=== PATIENT | female | born 1975 | race Caucasian/White ===

== ENCOUNTER 2022-09-03 08:40 | Day surgery (SDC) | payer MEDICARE, MEDICAID ==
[~2022-09-03] VITALS: Ht 157.5 cm; Wt 79.4 kg
[2022-09-03] VITALS (12 sets, daily range): BP systolic 87–121; BP diastolic 34–73; PULSE 83–102; TEMP 97.6–98.7
[2022-09-03] MEDS ORDERED: NORCO 325 MG-7.1 TAB PO (10:06)
[2022-09-03] MEDS ORDERED: TOFRANIL 10MG T10 MG PO (10:07)
[2022-09-03] MEDS ORDERED: CELEXA 20MG20 MG/TAB PO (10:08)
[2022-09-03] MEDS ORDERED: CELEXA40 MG PO (10:08)
[2022-09-03] MEDS ORDERED: PRILOSEC 20MG20 MG PO (10:09)
[2022-09-03] MEDS ORDERED: XANAX 1MG1 MG PO (10:09)
[2022-09-03] MEDS ORDERED: BELSOMRA10 MG PO (10:10)
[2022-09-03] MEDS ORDERED: MOBIC 7.5MG7.5 MG PO (10:11)
[2022-09-03] MEDS ORDERED: CLARITIN 1010 MG/TAB PO (10:11)
[2022-09-03] MEDS ORDERED: ZOCOR 10MG10 MG PO (10:12)
[2022-09-03] MEDS ORDERED: ARAVA 20MG TABL20 MG PO (10:12)
[2022-09-03] MEDS ORDERED: MELATONIN ER10 MG PO (10:13)
--- NOTE | 2022-09-03 19:33 | NUR ---
Patient has done well post op. Vss on O2. Left knee dressing CDI. GUILLAUME elevated on pillow. Scds ble. Iv to INT. She has tolerated meal, she is a big coffee drinker and has drank multiple cups. She had an episode of incontinent urine. Patient pain elevating, was going to give her order Roxicodone, but patient reports it gives her migraines. Aurelia stokes made aware and new orders for norco obtained per patient request. Thomas sullivannjennifer to resume cares and give the pain medication
--- NOTE | 2022-09-03 22:01 | NUR ---
1844 BSSR RECEIVED FROM RONNY GALVEZ. PT RESTING IN BED AT THIS TIME. REQUESTING PAIN MEDICATION. LEONOR JEFFERSON CONTACTED TO CHANGE MEDICATION ORDER THE PATIENT STATED SHE CAN NOT TAKE WHAT WAS PREVIOUSLY ORDERED. IV TO SALINE LOCK. L KNEE DRESSING CLEAN DRY AND INTACT. POST OP VITAL SIGNS STILL HOOKED UP. 1924 PT AMBULATED STAND BY WITH HER CRUTCHES TO THE BATHROOM. PAIN MEDICATION GIVEN. 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 ORDER PLACED. 2015 PT RESTING CALMLY IN BED. NO NEW REQUESTS AT THIS TIME. ALL NIGHT TIME MEDICATIONS GIVEN PER OCT. 2099 PT CALLED ASKING FOR ICE FOR KNEE. PCT APPLIED ICE. 2199 VITAL SIGNS GOTTEN. PT FOUND SLEEPING IN ROOM. NO NEW REQUESTS AT THIS TIME PAIN REPORTED TO BE A 1/10 AND PATIENT STATED THAT SHE IS CURRENTLY COMFORTABLE.
[2022-09-04 04:32] VITALS: BP 104/49; PULSE 76; TEMP 98.2
[2022-09-04 06:05] LABS: HEMATOCRIT 39.3 % (37.0-47.0); HEMOGLOBIN 12.4 g/dl (12.5-16.0)
[2022-09-04 06:17] LABS: CALCIUM 8.8 mg/dL (8.4-10.2); CREATININE, serum 0.72 mg/dL (0.57-1.11); POTASSIUM 4.2 mmol/L (3.5-4.5)
[2022-09-04 07:24] VITALS: BP 111/63; PULSE 76; TEMP 98.2
--- NOTE | 2022-09-04 07:37 | NUR ---
Received shift report from the night nurseThomas RN.
[2022-09-04 08:00] VITALS: TEMP 98.2
--- NOTE | 2022-09-04 08:23 | NUR ---
Patient sitting up in bed watching TV. Patient reports of mild pain at the left knee. Patient c/o left knee itchy possible dresssing at the site. No drainage noted on tess wrap dressing. Pulses presents. Patient denies needs at this time. Patient refused meds MOM and sennokot stating that she's been having bowel movement. Left leg elevated on a pillow.
--- NOTE | 2022-09-04 09:32 | NUR ---
Patient reports of pain at left knee. [place] administered.
--- NOTE | 2022-09-04 09:32 | NUR ---
Initial visit; Patient new, declined Spiritual Care. [facility] [employer] Specialist wished her well and hopes for recovery.
--- NOTE | 2022-09-04 12:01 | NUR ---
DARWIN met with the patient to discuss discharge plan. The patient lives alone in [place]. She states that she has help from her boyfriend and father. She reports independence with ADLs and has crutches, a walker, wheelchair, and cane. The patient's primary care provider is Funmilayo Rizo and she receives her medications from [facility]. The patient does not have a DPOA-HC and she was not interested in completing one at this time. The patient states that she is not and has two children: Patricio ([id number]#[phone]) and Jacoby. The patient plans to return home and receive outpatient therapy at [facility] upon discharge. No additional needs at this time. *Discharge plan: home with outpatient PT*
[2022-09-04] MEDS ORDERED: DOXYCYCLINE 10100 MG PO (13:12)
[2022-09-04] MEDS ORDERED: ASPIRIN 81M81 MG/TA2 PO (13:12)
[2022-09-04 13:36] VITALS: BP 102/40; PULSE 89; TEMP 97.9
--- NOTE | 2022-09-04 14:51 | NUR ---
Patient c/o at left knee and rated pain level 7/10. [place] administered.
--- NOTE | 2022-09-04 16:09 | NUR ---
Dishcarge instruction given, patient verbalized understanding. INT discontinued. Patient escorted down to the patient entrance.
== END 2022-09-04 15:30 | disposition home or self-care (01) ==
LOC: SDCO 08:40 → SURG 15:44 → SDCO 09-04 15:30
PROVIDERS: Orthopaedic Surgery
DX: T84.023A Instability of internal left knee prosthesis, initial encounter (principal); T84.84XA Pain due to internal orthopedic prosthetic devices, implants and grafts, initial encounter; I95.81 Postprocedural hypotension; E78.5 Hyperlipidemia, unspecified; K21.9 Gastro-esophageal reflux disease without esophagitis; G47.00 Insomnia, unspecified; F17.210 Nicotine dependence, cigarettes, uncomplicated; F41.9 Anxiety disorder, unspecified; F32.A Depression, unspecified; Z79.899 Other long term (current) drug therapy; I00 Rheumatic fever without heart involvement
CPT/HCPCS: OP; A9284; C1713; C1776; J0690; J1100; J1580; J1885; J2250; J2270; J2405; J2704; J2795

== ENCOUNTER → 2022-10-23 | Outpatient (REF) | payer MEDICARE, MEDICAID ==
[~2022-10-23] MED LIST: ARAVA 20MG TABL20 MG PO; ASPI325T6 PO; ASPIRIN 81M81 MG/TA2 PO; BELSOMRA10 MG PO; CELEXA 20MG20 MG/TAB PO; CELEXA40 MG PO; CLARITIN 1010 MG/TAB PO; CUBICIN 500MG500 MG IV; DOXYCYCLINE 10100 MG PO; MELATONIN ER10 MG PO; MOBIC 7.5MG7.5 MG PO; NORCO 325 MG-7.1 TAB PO; PRILOSEC 20MG20 MG PO; ROCEPHIN VIA1 G/VIAL IJ; TOFRANIL 10MG T10 MG PO; VITAMIN C500 MG PO; XANAX 1MG1 MG PO; ZOCOR 10MG10 MG PO
== END ==
LOC: ZCOL.LAB 17:20
DX: T84.59XA Infection and inflammatory reaction due to other internal joint prosthesis, initial encounter (principal)